=== PATIENT | female | born 1940 | race Caucasian/White ===

== ENCOUNTER 2017-03-31 13:38 | Inpatient (IN) ==
--- NOTE | 2017-03-31 14:32 | Emergency Department Note ---
Arrival - Arrival Chief Complaint: Neuro ED Nursing Triage Note: pt woke up about 0200 this am with lt side weakness. pt saw pcp at 0900. pt has no weakness now Mode of Arrival: Stretcher Limitations: No Limitations Source: Patient Time Seen by Provider: 03/31/17 14:28 - History of Present Illness HPI Narrative: This 76-year-old white female presents with a history of onset of right facial droop, ataxia, and bilateral motor aberrations shortly after awakening this morning. She was taken immediately to her primary care doctor who thought she was having a stroke, as by his evaluation she had a right facial droop and right -sided weakness. She was sent to where she was found to have what they perceived to be left sided weakness and resolution of the right facial droop. While at [place] the patient had ultimate rastafarian of motor activity symmetrically. From the course of workup at [place] her CT there revealed no acute infarct. The patient does have a history of a prior TIA 4 years ago. Notably in the last 24 hours she had felt profoundly weak all day yesterday but otherwise was without any complaint. In association with this episode she denies nausea, vomiting, chest pain, shortness of breath, headache, or diaphoresis. Currently she appears stable and in no acute distress. Onset (ago): hour(s) (Patient presents 8 hours post onset of symptoms) Allergies/Adverse Reactions: Allergies Allergy/AdvReac Type Severity Reaction Status Date / Time iron Allergy Unknown/Unable Verified 03/31/17 13:48 to obtain Home Medications: Home Medications Medication Instructions Recorded Confirmed Type Aspirin EC Tab 81 mg PO QOTHER DAY 03/31/17 03/31/17 History Atenolol 25 mg PO QPM 03/31/17 03/31/17 History Estradiol [Estradiol Tab] 1 mg PO MOFR 03/31/17 03/31/17 History Losartan/Hydrochlorothiazide 1 each PO QAM 03/31/17 03/31/17 History [Losartan-Hctz 50-12.5 mg Tab] [place]-3/Dha/Epa/Fish Oil [Fish Oil 1 each PO BID 03/31/17 03/31/17 History 1,000 mg Softgel] Review of System - Review of System 12 point system: reviewed and no additional remarkable complaints except as stated - Review of System Constitutional: Present: as per HPI Respiratory: Present: as per HPI Cardiovascular: Present: as per HPI Gastrointestinal: Present: as per HPI Neurological: Present: as per HPI Medical,Surgical,& Family Hx - Medical History Cardio: History of: Hypertension Neurology: History of: TIA - Social History Smoking Status: Never smoker Frequency of Alcohol Use: None Type of Drug Use: None Exam Physical Examination: GENERAL: Well developed, well nourished elderly white in no acute distress. HEENT: Normocephalic. No trauma. Moist mucous membranes. EOMI. PERRLA. ENT NML NECK: Supple. No adenopathy. CARDIAC: Regular. No murmurs. Heart rate 72 CHEST: Clear to auscultation. No respiratory distress. O2 sat 98% ABDOMEN: Soft. Nontender. Active bowel sounds. EXTREMITIES: No trauma. Normal ROM. No pedal edema. SKIN: No diaphoresis. No rash. NEURO: Alert. Oriented 3. Motor, sensory, vibratory intact. No focal deficits. Normal exam at this time. Vital Signs: Vital Signs Temperature 98.4 F 03/31/17 13:43 Pulse Rate 72 03/31/17 13:43 Respiratory Rate 18 03/31/17 13:43 Blood Pressure 191/84 03/31/17 13:43 O2 Sat by Pulse Oximetry 96 03/31/17 13:43 Course - Reevaluation(s) Reevaluation #1: Discussed with patient the need for admission for further evaluation and workup - Consultations Consultation #1: Discussed with hospitalist service who will admit for further evaluation treatment. Results - Labs Labs: Lab per Pat reveals negative cardiac's, sodium 142, potassium 4.0, BUN 18, creatinine 0.7, glucose 117, white blood cell count 7600, hematocrit 15,200 - Impressions EKG provided sinus rhythm with occasional PVC. Normal NE interval and QRS duration. Nonspecific ST changes. No acute injury pattern noted. - Diagnostic Findings Procedure: CT: image reviewed by me, report reviewed by me (Head her brother reveals no acute injury) Disposition Clinical Impression: TIA Case discussed with: patient Disposition: Still a Patient Condition: Guarded Time of Disposition: 14:44
[2017-03-31] MEDS ORDERED: LABETALOL 20 MG/4 ML SYRINGE IV PRN (16:41)
--- NOTE | 2017-03-31 16:58 | Hospitalist History & Physical ---
Assessment and Plan (1) TIA (transient ischemic attack) Status: Acute Assessment and plan: Patient has a history of TIA in the past. At the time of ED presentation here at [facility], the patient was free of any neurological deficit. We will conduct a full TIA workup; obtain echocardiogram, carotid Dopplers, lipid panel, thyroid panel, MRI and MRA, and consult neurology to evaluate. Current Visit: Yes Qualifiers: Transient cerebral ischemia type: unspecified Qualified Code(s): G45.9 - Transient cerebral ischemic attack, unspecified (2) HTN (hypertension) Status: Acute Assessment and plan: The patient's blood pressure is stable. We will monitor closely. Current Visit: Yes History of Present Illness Chief complaint: Left-sided weakness History of present illness: This is a very pleasant 76-year-old female that presented to the ED at [facility] this afternoon as a lateral transfer from [facility] for the evaluation of left-sided weakness. Patient has a medical history significant for hypertension and transient ischemic attack. Patient has surgical history significant for hysterectomy and tonsillectomy. The patient reported the onset of symptoms this morning. She reports that she was attempting to get up to walk to the bathroom and she felt "unsteady" and "no use of the right side" her became alarmed and he took her to her primary care physician this morning. She was evaluated by her primary care physician and at that time she was noted to have a right-sided facial droop and right-sided weakness. The patient was subsequently transferred to [facility] where she was evaluated. During the clinical encounter, the patient's motor function improved. CT scan was performed there which revealed no acute infarct. The patient reported that she had a headache and weakness that lasted the entire day on yesterday. The patient was subsequently transferred to [facility] for further evaluation. Upon review of the external facility record and after brief discussion with both Dr. León and Dr. Slaughter, the patient will be admitted to the hospitalist services for continuation of care. A neurology consult has been requested. Home medications have been reviewed and reconciled. CODE STATUS has been discussed; patient is a FULL CODE. Home Medications Medication Instructions Recorded Confirmed Type Aspirin EC Tab 81 mg PO QOTHER DAY 03/31/17 03/31/17 History Atenolol 25 mg PO QPM 03/31/17 03/31/17 History Estradiol [Estradiol Tab] 1 mg PO MOFR 03/31/17 03/31/17 History Losartan/Hydrochlorothiazide 1 each PO QAM 03/31/17 03/31/17 History [Losartan-Hctz 50-12.5 mg Tab] [place]-3/Dha/Epa/Fish Oil [Fish Oil 1 each PO BID 03/31/17 03/31/17 History 1,000 mg Softgel] Allergies Allergy/AdvReac Type Severity Reaction Status Date / Time iron Allergy Unknown/Unable Verified 03/31/17 13:48 to obtain Medical,Surgical,& Family Hx - Medical History Cardio: History of: Hypertension Neurology: History of: TIA - Social History Smoking Status: Never smoker Frequency of Alcohol Use: None Type of Drug Use: None 12 point system: reviewed and no additional remarkable complaints except as stated Exam - Constitutional Vitals: Period Temp Pulse Resp BP Sys/Chris Pulse Ox Last 24 Hr 98.4 F-98.4 F 72-72 18-18 191-191/84-84 96 General appearance: normal weight, no acute distress - Head Head exam: Present: normal inspection, normocephalic, atraumatic - Eye Eye exam: Present: EOMI. Absent: conjunctival injection Pupils: Present: ROSANNA, normal accommodation - ENT ENT exam: Present: normal exam, normal external ear exam, normal oropharynx - Neck Neck exam: Present: normal inspection. Absent: lymphadenopathy, meningismus, thyromegaly - Respiratory Respiratory exam: Present: clear to auscultation bilaterally. Absent: rales, rhonchi, stridor, wheezes - Cardiovascular Cardiovascular exam: Present: regular rate and rhythm. Absent: bradycardia, carotid bruit, diastolic murmur, JVD, rubs, systolic murmur - GI/Abdominal GI/Abdominal exam: Present: normal bowel sounds, soft - Extremities Exam Extremities exam: Present: normal inspection, normal capillary refill, full ROM , edema - Back Exam Back exam: Present: normal inspection - Neurological Exam Neurological exam: Present: alert, oriented X3, CN II-XII intact - Psychiatric Psychiatric exam: Present: normal affect, normal mood - Skin Skin exam: Present: normal color, warm, dry Quality Measures - Stroke Onset of Symptoms Date: 03/31/17
[2017-03-31] MEDS ORDERED: ASPIRIN CHEW 81 MG TABLET PO ONE (17:25)
--- NOTE | 2017-03-31 17:30 | Ultrasound Report ---
Bilateral carotid Doppler. Grayscale, color flow, spectral analysis performed and interpreted. Indication: TIA. There is mild to moderate mixed, predominantly calcified plaque seen within both carotid bulbs and proximal internal carotid arteries. The right internal carotid artery peak systolic velocity is 82 cm/s, with an IC/CC Jabari of 2.2. The left internal carotid artery peak systolic velocity is 90 forcing meters per second, with an IC/CC ratio of 2.3. There is antegrade flow within each vertebral artery. Impression: IC/CC ratios are approaching values consistent with 50% stenosis bilaterally. In addition, there is significant plaque seen within grayscale imaging. MRA of the carotid bifurcations may be helpful for further characterization. NASCET criteria utilized. PROCEDURE INTERPRETED AT [facility] DEPARTMENT OF RADIOLOGY Final Report Signed by: Dr. Anny Pucktet
[2017-03-31 19:55] LABS: Basophils # 0.1 10*3/uL (0.0-0.2); Basophils % 0.7 % (0.0-0.8); Eosinophils # 0.1 10*3/uL (0.0-0.87); Hematocrit 40.7 VOL% (35.7-47.0); Hemoglobin 14.2 GM/DL (12.0-16.0); Immature Granulocytes % 0.4 %; Immature Granulocytes Absolute 0.03 #; Lymphocytes # 2.2 10*3/uL (1.4-4.0); Lymphocytes % 30.1 % (21.3-54.2); Mean Corpuscular HGB Conc 34.9 GM/DL (32-36); Mean Corpuscular Hemoglobin 31 PG (27-34); Mean Platelet Volume 11.2 FL (9.6-12.0); Monocytes # 0.7 10*3/uL (0.11-0.8); Monocytes % 9.1 % (1.7-12.7); Neutrophils # 4.2 10*3/uL (1.4-7.4); Neutrophils % 58.7 % (38.7-73.9); Platelet Count 181 T/CUMM (130-400); Red Blood Count 4.52 MC/CUMM (3.8-5.5); Red Cell Distribution Width 12.8 % (9.3-17.3); White Blood Count 7.1 T/CUMM (4-12)
[2017-03-31 20:17] LABS: Calcium 9.1 MG/DL (8.5-10.1); Osmolality,Calculated 278.5 MOS/KG (273-304); Potassium 3.3 MMOL/L (3.5-5.1)
[2017-03-31 20:22] LABS: Cholesterol 243 MG/DL (50-200); HDL Cholesterol 52 MG/DL (40-60); Risk Ratio 4.67; Triglycerides 219 MG/DL (2-150); Troponin I Only < 0.015 NG/ML (0.00-0.045); VLDL CHOLESTEROL 43.8 MG/DL
[2017-04-01 05:57] LABS: Basophils # 0.1 10*3/uL (0.0-0.2); Basophils % 0.9 % (0.0-0.8); Eosinophils # 0.1 10*3/uL (0.0-0.87); Eosinophils % 1.6 % (0.00-10.9); Hematocrit 40.2 VOL% (35.7-47.0); Hemoglobin 14.4 GM/DL (12.0-16.0); Immature Granulocytes % 0.2 %; Immature Granulocytes Absolute 0.01 #; Lymphocytes # 1.7 10*3/uL (1.4-4.0); Lymphocytes % 30.5 % (21.3-54.2); Mean Corpuscular HGB Conc 35.8 GM/DL (32-36); Mean Corpuscular Hemoglobin 32 PG (27-34); Mean Corpuscular Volume 89.3 FL (87-102); Mean Platelet Volume 11.1 FL (9.6-12.0); Monocytes # 0.6 10*3/uL (0.11-0.8); Monocytes % 10.9 % (1.7-12.7); Neutrophils # 3.1 10*3/uL (1.4-7.4); Neutrophils % 55.9 % (38.7-73.9); Platelet Count 174 T/CUMM (130-400); Red Cell Distribution Width 12.6 % (9.3-17.3); White Blood Count 5.6 T/CUMM (4-12)
[2017-04-01 06:28] LABS: Calcium 9.4 MG/DL (8.5-10.1); Osmolality,Calculated 284.1 MOS/KG (273-304); Potassium 3.8 MMOL/L (3.5-5.1)
[2017-04-01] MEDS ORDERED: ASPIRIN EC 81 MG TABLET PO SCH (09:00)
[2017-04-01] MEDS ORDERED: LOSARTAN/HCTZ 50-12.5 MG TABLET PO SCH (09:00)
--- NOTE | 2017-04-01 11:17 | Magnetic Resonance Report ---
Exam: MR head/brain w and wo con Date: 04/01/2017 Comparison: None Indication: TIA Technical: 1.5 Jennifer magnet Axial T1 pre-and postcontrast, ADC, DWI, FLAIR, gradient echo and FSE T2 Sagittal T1 precontrast, FLAIR Coronal postcontrast T1 Contrast: 20 cc cc Dotarem Findings: Exam reveals abnormal signal with restricted diffusion imaging in the right frontal temporal parietal lobe these areas of punctate abnormality on the different restricted diffusion imaging DWI imaging of dark signal on ADC images. Single area of abnormality in present in the right centrum semiovale posteriorly as well. The brainstem exhibit normal signal characteristics. The cerebellum reveals mild atrophic changes. The cerebral hemispheres exhibit small vessel changes are present in the periventricular subcortical white matter regions as well as the findings on the ADC and restricted diffusion imaging above. No obvious contrast enhancement signal characteristics demonstrated. The corpus callosum is unremarkable. The seventh and eighth cranial nerves and cerebral pontine angles are intact. The pituitary gland, infundibulum and optic chiasm are intact. The paranasal sinuses exhibit minimal inflammatory changes within the ethmoid air cells. Remaining paranasal sinuses demonstrate normal signal characteristics. The mastoid sinuses are unremarkable. The globes and intra-and extraconal spaces are unremarkable. Impression: 1. Small area of infarction involving the right frontal temporal and parietal lobe involving the region of a portion of the right middle cerebral artery distribution. 2. Small vessel ischemic changes diffusely present. PROCEDURE INTERPRETED AT [facility] DEPARTMENT OF RADIOLOGY Final Report Signed by: Dr. Sumanth Ty
--- NOTE | 2017-04-01 11:23 | Magnetic Resonance Report ---
Exam: MR angio neck wo/w con Date: 04/01/2017 Indication: TIA Comparison: None Technical 3-D slab imaging with axial and coronal imaging performed with and without gadolinium enhancement with 20 cc of contrast Dotarem administered. 3-D maximal intensity reduction images are available for review. Findings: The brachiocephalic artery right subclavian the left common carotid artery left subclavian are patent. The vertebral arteries are patent bilaterally. The thoracic arch is intact. The right common carotid artery, internal and external carotid artery demonstrated. Examination reveals mild plaque within the takeoff of the right ICA with minimal post stenotic dilatation. The distal vessel measures approximately 4.1 mm. The proximal vessel measures approximately 3.1 cm. The left common carotid artery, internal and external carotid are demonstrated. There is an area of narrowing within the takeoff of the left ICA. Poststenotic dilatation is present. The distal vessel measures 3.4 mm. The proximal vessel measures approximately 3.5 mm. The area of stenosis appears to narrow to approximately 1.3 mm. Impression: 1. Atherosclerotic plaque within the proximal aspect of the internal carotid arteries bilaterally with stenosis measuring approximately 70% left. There appears to be approximately a 50% narrowing of the right internal carotid artery. CT angiography or formal arteriography may be beneficial. PROCEDURE INTERPRETED AT [facility] DEPARTMENT OF RADIOLOGY Final Report Signed by: Dr. Sumanth Ty
--- NOTE | 2017-04-01 11:37 | Hospitalist Progress Note ---
Assessment and Plan (1) TIA (transient ischemic attack) Status: Acute Assessment and plan: Symptoms persisted for less than 24 hours by description. MRI demonstrated ischemic lesion superimposed upon chronic small vessel disease. 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 She continued unsteady during the morning hours and presented to her primary care physician subsequent referral. The patient believes that the symptoms lasted for not less than 6 hours but have remitted at this time. She denies any other symptoms during this interval. She is chronically maintained on low-dose aspirin at home but does take estrogen replacement therapy as well. Evaluation thus far shows subcritical carotid disease with a negative CT scan of the head at the outside facility however with a MRI done earlier this morning showing a small area in the right frontal temporal parietal region with diffuse small vessel changes. The patient had resolved her symptoms completely. Vital signs are stable and she feels well this morning. She has been consulted to neurology evaluation is pending. Exam - Constitutional Vitals: Period Temp Pulse Resp BP Sys/Chris Pulse Ox Last 24 Hr 97.3 F-98.4 F 63-75 18-21 143-191/67-88 92-98 General appearance: normal weight - Respiratory Respiratory exam: Present: clear to auscultation bilaterally. Absent: rales, rhonchi, wheezes - Cardiovascular Cardiovascular exam: Present: regular rate and rhythm - GI/Abdominal GI/Abdominal exam: Present: normal bowel sounds. Absent: tenderness - Extremities Exam Extremities exam: Absent: edema - Neurological Exam Neurological exam: Present: alert, oriented X3. Absent: motor sensory deficit Results - Labs CBC & BMP: 04/01/17 05:46 04/01/17 05:45 Quality Measures - Stroke Onset of Symptoms Date: 03/31/17 Onset of Symptoms Time: 05:00 Symptom Onset Unknown: No
[2017-04-01] MEDS: LOSARTAN 50 MG TABLET PO SCH (12:37)
--- NOTE | 2017-04-01 15:15 | Neurology Consult Note ---
History of Present Illness History of present illness: Ms Chandler is a 76-year-old right-handed white lady with past medical history significant for hypertension and TIA presented to the ED at [facility] for the evaluation of left-sided weakness. She reports that she was attempting to get up to walk to the bathroom and she felt "unsteady" and poor balance. Her took her to her primary care physician yesterday morning. The patient was subsequently transferred to [facility] where she was evaluated. During the clinical encounter, the patient's motor function improved. CT scan was performed there which revealed no acute infarct. The patient reported that she had a headache and weakness that lasted the entire day on yesterday. The patient was subsequently transferred to [facility] for further evaluation. MRI of the brain revealed right MCA distribution tiny multiple infarcts suggestive of embolic event. Lipid profile are borderline abnormal. Carotid ultrasound reveals less than 50 % stenosis however MRA of the carotid artery revealed 70% stenosis of the right ICA which is asymptomatic. Home Medications Medication Instructions Recorded Confirmed Type Aspirin EC Tab 81 mg PO QOTHER DAY 03/31/17 03/31/17 History Atenolol 25 mg PO QPM 03/31/17 03/31/17 History Estradiol [Estradiol Tab] 1 mg PO MOFR 03/31/17 03/31/17 History Losartan/Hydrochlorothiazide 1 each PO QAM 03/31/17 03/31/17 History [Losartan-Hctz 50-12.5 mg Tab] [place]-3/Dha/Epa/Fish Oil [Fish Oil 1 each PO BID 03/31/17 03/31/17 History 1,000 mg Softgel] Allergies Allergy/AdvReac Type Severity Reaction Status Date / Time iron Allergy Unknown/Unable Verified 03/31/17 13:48 to obtain 12 point system: reviewed and no additional remarkable complaints except as stated Medical,Surgical,& Family Hx - Medical History Cardio: History of: Hypertension (current) Psychological: No history of: Anxiety Disorders, ADHD, Behavior Problems, Bipolar Disorder, Depression, Previous Suicide Attempt, Psychiatric/Substance Abuse Tx, Schizophrenia, Violent Behavior, Psychiatric Problems Neurology: History of: TIA (4 years ago and current) HEENT: No history of: Ear Problem, Eye Problem, Dental Problems, Glaucoma Comment Only: HEENT Problems (drooping left eyelid) Endocrine: History of: Endocrine Problems (nodule on thyroid many yeargs ago bx x2) No history of: Adrenal Disease, Diabetes Mellitus (IDDM), Diabetes Mellitus ( NIDDM), Thyroid Disorder, Endocrine Cancer Rheumatology: No history of;: Fibromyalgia, Gout, Psoriasis, Rheumatoid Arthritis, Sjogrens , Systemic Lupus Erythematosus, Rheumatological Problems Renal: No history of: Dialysis, Renal Failure, Renal Problems Genitourinary: No history of: Bladder Problem, Kidney Stones, Recurring Urinary Tract Infections, Genitourinary Cancer, Problems Musculoskeletal: No history of: Amputation, Back/Neck Problems, Degenerative Disk Disease, Herniated Disk, Osteoporosis Comment Only: Musculoskeletal Problems (regular arthritis) Hematology: No history of: Anemia, Blood Transfusion Reaction, Bleeding Problems, Clotting Problems, Sickle Cell Disease, Hematologic Cancer, Blood Disorders Reproductive: No history of: Abnormal Pap Smear, Breast Cancer, Endometriosis, Ectopic , Ovarian Cysts, Complication, Sexually Transmitted Disorders , Reproductive Cancer, Reproductive Problems Other: No history of: Anesthesia Reactions, Anaphylaxis, Cancer, Eczema, Malignant Hyperthermia, MRSA, Vancomycin-Resistant Enterococci, Skin Problems, Miscellaneous Medical Problems - Surgical History Thoracic Surgeries: Patient denies;: Kidney (Renal Surgery), Lithotripsy, Organ Transplant HEENT Surgeries: Surgical HX of: Thyroid Surgery (see above), Tonsilectomy & Adenoidectomy (at age 12) Patient denies: Eye Surgery Abdominal Surgeries: Patient denies: Abdominal Surgery, Appendectomy, Cholecystectomy, Colonoscopy , Gastric Bypass Surgery, EGD, Hernia Repair Reproductive Surgeries: Surgical HX of;: Hysterectomy (35 years ago) Patient denies;: Section, Cystoscopy, Tubal Ligation Orthopedic Surgeries: Patient denies;: Implanted Devices, Orthopedic Surgery, Spinal Surgery, Total Hip Replacement, Total Knee Replacement - Family History Family History: Denies;: Family Anesthesia Reaction, Family Cancer, Family Diabetes, Family Hematology, Family Hypertension, Family Psychiatric Problems, Family Stroke, Additional Family History Comment Only: Family Heart Disease (father heart attack at age 41) - Social History Smoking Status: Never smoker Frequency of Alcohol Use: None Type of Drug Use: None Exam - Constitutional Vitals: Period Temp Pulse Resp BP Sys/Chris Pulse Ox Last 24 Hr 97.3 F-98.2 F 61-75 18-21 143-191/67-88 92-98 Exam: GENERAL: Patient is in no acute distress. NECK: Neck is supple. There is no JVD. No carotid bruits present. No thyroid masses. CVS: First and second heart sounds are normal. There is no S3 present. Regular rate and rhythm. RESPIRATORY: Lungs are clear to auscultation without any rales or rhonchi. ABDOMEN: Soft and non-tender. Bowel sounds are present. There is no hepatosplenomegaly. EXT: There is no palpable edema. Peripheral pulses are present. Skin: No rashes Central Nervous system: General: Alert, awake and Oriented x 3 Speech: Fluent Comprehension: Intact and normal Facial expressions: Normal Cranial Nerves: CN1/Olfactory: Normal CN II/ Optic: Normal, Visual Francis unreliable CN III, and : ROSANNA & EOMI CN V: Normal & intact CN VII: face is symmetric CNVIII: Normal CN XI/X/XI/XII: Intact and Normal Motor: Bulk and Tone is normal. Strength in the right 5/5 Strength in the left 3-4/5 Sensory: Decreased for all the modalities of PP, LT and temp sense in the left Reflexes: 1+ and symmetrical Cerebellar function: Normal finger to nose and heel to jack testing. Toes: Equivocal Gait: Able to get up and walk with supervision Results - Labs CBC & BMP: 04/01/17 05:46 04/01/17 05:45 Assessment and Plan (1) Acute CVA (cerebrovascular accident) Status: Acute Assessment and plan: Stop aspirin Start Plavix 75 mg p.o. daily Schedule outpatient PT and OT Schedule echo Current Visit: Yes (2) Hyperlipidemia Status: Acute Assessment and plan: Add Crestor 10 mg. P.o. daily Current Visit: Yes (3) HTN (hypertension) Status: Acute Assessment and plan: Continue losartan and atenolol at the same dose Follow-up in 4 week Thank you for the consult Current Visit: Yes Specialty Discharge - Follow Up or Referrals Follow up with: Andrew Wolff MD [Physician] - 1 Month
--- NOTE | 2017-04-01 16:24 | ECHO Report ---
Kamini Chandler Exam Date: 04/01/2017 09:19 Referring Physician: Technologist: Steffi Cortes Age: 76 Ht (in): 67 Wt (lb): 142 Gender: F Exam Location: [facility] Echo Indications: weakness, TIA, HTN BP: 161 / 75 HR: 75 Rhythm: Sinus Technical Quality: Fair IMPRESSIONS 1. Left ventricle is normal size and systolic function ejection fraction 55%. There is mild concentric left ventricular hypertrophy with mild diastolic dysfunction. 2. Other cardiac chambers are normal size. B. Mild mitral valve sclerosis with trace regurgitation. 4. Mild aortic valve sclerosing but functionally normal. 5. There is no gross source for emboli appreciated on this study. MEASUREMENTS (Male / Female) Normal Values 2D ECHO LV Diastolic Diameter PLAX 3.6 cm 4.2 - 5.9 / 3.9 - 5.3 cm LV Systolic Diameter PLAX 2.4 cm LV Fractional Shortening PLAX 34.3 % IVS Diastolic Thickness 1.3 cm 0.6 - 1.0 / 0.6 - 0.9 cm LVPW Diastolic Thickness 1.3 cm 0.6 - 1.0 / 0.6 - 0.9 cm RV Internal Dim ED PLAX 2.7 cm Aortic Root Diameter 2.3 cm LA Systolic Diameter LX 3.4 cm 3.0 - 4.0 / 2.7 - 3.8 cm DOPPLER TR Peak Velocity 197.0 cm/s TR Peak Gradient 15.5 mmHg FINDINGS Left Ventricle Normal left ventricular cavity size. Mild concentric left ventricular hypertrophy with possibly mild diastolic dysfunction. Left ventricular ejection fraction is estimated at 55 %. Right Ventricle Normal right ventricular size. Right Atrium Normal right atrial size. Left Atrium Normal left atrial size. Mitral Valve Mild mitral valve sclerosis. Trace mitral valve regurgitation. Aortic Valve Mild aortic valve sclerosis without stenosis or regurgitation. Tricuspid Valve Morphologically normal tricuspid valve. Trace to mild tricuspid valve regurgitation. Tricuspid regurgitation velocities suggest a PAP of 26 mmHg. Pulmonic Valve Morphologically normal pulmonic valve. Pericardium No pericardial effusion. Aorta Normal size aortic root and proximal ascending aorta. Bryan Barrios MD (Electronically Signed) Final Date: 01 April 2017 16:23
[2017-04-01] MEDS ORDERED: ATENOLOL 25 MG TABLET PO SCH (19:00)
[2017-04-01] MEDS ORDERED: ROSUVASTATIN 10 MG TABLET PO SCH (21:00)
[2017-04-02] MEDS ORDERED: CLOPIDOGREL 75 MG TABLET PO SCH (09:00)
[2017-04-02] MEDS: LOSARTAN 50 MG TABLET PO SCH (09:14)
--- NOTE | 2017-04-02 09:23 | Discharge Summary ---
Hospital Course - Hospital Course Hospital Course: 76-year-old female chronic hypertension with presentation with gait instability. Patient is chronically maintained on low-dose aspirin and in the emergency department demonstrated a negative CT scan of the head. An MRI of the head did show however a small area of abnormality in the right frontal temporal parietal region with diffuse small vessel changes. This is not associated with any significant carotid disease echocardiographic abnormality or cardiac arrhythmias. She was seen in consultation by neurology who recommended conversion from aspirin to Plavix. Lipid-lowering treatment was recommended however the patient had tried all the agents previously and stated that she had severe muscle pain with each agent and never been able to complete a course of treatment. She is being discharged at this time she will have outpatient occupational and physical therapy with neurology follow-up in 1 month. Diagnosis - Discharge Diagnosis (1) TIA (transient ischemic attack) Status: Acute Specialty Discharge - Follow Up or Referrals Follow up with: Andrew Wolff MD [Physician] - 1 Month Discharge Plan - Discharge Data Disposition: Disch To Home/Self Care Condition at Discharge: Stable Discharge Diet: advance to your usual diet Activity: resume usual activities as tolerated - Discharge Medications New Clopidogrel [Plavix] 75 mg PO DAILY #30 tablet Continue Losartan/Hydrochlorothiazide [Losartan-Hctz 50-12.5 mg Tab] 1 each PO QAM Estradiol [Estradiol Tab] 1 mg PO MOFR [place]-3/Dha/Epa/Fish Oil [Fish Oil 1,000 mg Softgel] 1 each PO BID Atenolol 25 mg PO QPM Discontinued Aspirin EC Tab 81 mg PO QOTHER DAY - Follow Up or Referral Follow Up: Andrew Wolff MD [Physician] - 1 Month - Forms/Instructions Instructions: Ischemic Stroke (DC) Exam - Constitutional Vitals: Period Temp Pulse Resp BP Sys/Chris Pulse Ox Last 24 Hr 96.8 F-98.2 F 55-62 18-95 125-175/62-85 91-98 DS: Provider Date of admission: 03/31/17 16:40 Primary care physician: . No PCP Attending physician on admission: Rojelio Slaughter MD Consults: 03/31/17 16:41 Consult to Case Mgmt/Social Srvs [CONS] Routine Reason for Case Mgmt/Social Srvs: Discharge Planning Consult to Occupational Therapy [CONS] Routine Reason for Occupational Therapy: Evaluate and Treat Consult Comment: Stroke Consult to Physical Therapy [CONS] Routine Reason for Physical Therapy: Evaluate and Treat Consult Comment: stroke 03/31/17 18:33 Consult to Pastoral Services [CONS] Routine Comment: Pastoral Screen: Request Area Plant Manager Visit Pastoral Screen Source of Request: Patient 04/01/17 16:42 Consult to Physician [CONS] Routine Comment: Consulting Provider: Andrew Wolff Consulting Provider Notified: Yes When should Consulting Provider be notified: Now Consult to Specialist Group: Neurology Person Notified: TD Date Notified: 04/01/17 Time Notified: 08:47 Discharging clinician: Mahamed Glynn MD Expected date of discharge: 04/02/17
--- NOTE | 2017-04-02 09:48 | Physician Query Form ---
CLICK EDIT DOCUMENT TO SELECT QUERY ANSWER --> OK --> SIGN Salome Gonzalez RN, CCDS Certified Clinical Licensed Surveyor W) [phone] (f) [phone] [email or web address] PROVIDERS: Make your selection(s) from the choices in EACH section by typing an "x" and enter comments in the comment section. Please use your independent medical judgment in providing your response. This request does not imply that any particular answer is desired or expected. CLINICAL INDICATORS: (Providers should not edit this section) The medical record indicates that the patient was admitted with gait instability , "MRI of the head did show however a small area of abnormality in the right frontal temporal parietal region with diffuse small vessel changes", Neuro consultation " Acute CVA (cerebrovascular accident)" and per discharge summary "TIA (transient ischemic attack)". As the attending MD can you please clarify if the patient was treated for ? Based on the above, could you clarify the appropriate diagnosis, if significant , that supports the above abnormalities and additional evaluation, monitoring, and/or treatment rendered: ( x) TIA (transient ischemic attack) ( ) CVA ( ) Other, please specify: ( ) Clinically unable to determine COMMENTS: PLEASE ALSO DOCUMENT RESPONSE IN PROGRESS NOTES AND/OR DISCHARGE SUMMARY Use of terms such as suspected, likely, or probable (associated with a specific diagnosis that is being evaluated, monitored, or treated as if it exists) are acceptable and can be restated in the discharge summary if not ruled out. MTDD
[2017-04-07 10:16] VITALS: BP 139/85
== END 2017-04-02 11:30 | disposition home or self-care (01) | DRG 69 ==
LOC: N.ED 13:38 → N.EDINP 16:40 → SUATTDRO 16:40 → N.4E 17:51
PROVIDERS: ADMIT Internal Medicine; ATTEND Internal Medicine Cardiovascular Disease

== ENCOUNTER 2017-06-20 23:01 | Inpatient (IN) ==
--- NOTE | 2017-06-21 00:24 | Emergency Department Note ---
Arrival - Arrival Chief Complaint: Dizziness ED Nursing Triage Note: C/O Dizziness. Onset 1899 today. Pt states that she thought she could be having another stroke so she wanted to get checked out. Pt reports having CVA in March that left her with residual weakness to left side- she uses a cane to get around with. Mode of Arrival: Stretcher Limitations: No Limitations Source: Patient Time Seen by Provider: 06/20/17 23:28 - History of Present Illness HPI Narrative: The patient was transferred here from [facility] for possible CVA. She complains of dizziness since around 1899 tonight. States she feels off balance but also states that she felt like she was going to pass out at one point. She has some residual left-sided weakness after a CVA in March of this year but she reports no new focal weakness. No facial droop or slurred speech. No mental status changes. At [facility] she had a CT scan which showed "a new area of encephalomalacia change infarction in the right basal ganglia and subcortical margin of the frontal parietal lobe." Her lab work was essentially normal. She was noted to be hypertensive on arrival there with a blood pressure of 210/105. This improved to 195/84 by the time she left without any treatment. Date of Last Menstrual Period: Hysterectomy Allergies/Adverse Reactions: Allergies Allergy/AdvReac Type Severity Reaction Status Date / Time iron Allergy Unknown/Unable Verified 03/31/17 13:48 to obtain Home Medications: Home Medications Medication Instructions Recorded Confirmed Type Atenolol 25 mg PO QPM 03/31/17 06/20/17 History Estradiol [Estradiol Tab] 1 mg PO MOFR 03/31/17 06/20/17 History Losartan/Hydrochlorothiazide 1 each PO QAM 03/31/17 06/20/17 History [Losartan-Hctz 50-12.5 mg Tab] [place]-3/Dha/Epa/Fish Oil [Fish Oil 1 each PO BID 03/31/17 06/20/17 History 1,000 mg Softgel] Clopidogrel [Plavix] 75 mg PO DAILY #30 tablet 04/02/17 06/20/17 Rx Review of System - Review of System 12 point system: reviewed and no additional remarkable complaints except as stated - Review of System Constitutional: Absent: fever Eyes: Absent: vision change Head/Ears/Nose/Throat: Absent: nasal drainage, sore throat Respiratory: Absent: cough Cardiovascular: Absent: chest pain Gastrointestinal: Absent: nausea, vomiting Neurological: Present: weakness (Residual left-sided weakness from previous CVA , unchanged), other ("Dizziness"). Absent: headache, numbness, paresthesias, confusion Medical,Surgical,& Family Hx - Medical History Cardio: History of: Hypertension (current) Psychological: No history of: Anxiety Disorders, ADHD, Behavior Problems, Bipolar Disorder, Depression, Previous Suicide Attempt, Psychiatric/Substance Abuse Tx, Schizophrenia, Violent Behavior, Psychiatric Problems Neurology: History of: TIA (4 years ago and current) HEENT: No history of: Ear Problem, Eye Problem, Dental Problems, Glaucoma Comment Only: HEENT Problems (drooping left eyelid) Endocrine: History of: Endocrine Problems (nodule on thyroid many yeargs ago bx x2) No history of: Adrenal Disease, Diabetes Mellitus (IDDM), Diabetes Mellitus ( NIDDM), Thyroid Disorder, Endocrine Cancer Rheumatology: No history of;: Fibromyalgia, Gout, Psoriasis, Rheumatoid Arthritis, Sjogrens , Systemic Lupus Erythematosus, Rheumatological Problems Renal: No history of: Dialysis, Renal Failure, Renal Problems Genitourinary: No history of: Bladder Problem, Kidney Stones, Recurring Urinary Tract Infections, Genitourinary Cancer, Problems Musculoskeletal: No history of: Amputation, Back/Neck Problems, Degenerative Disk Disease, Herniated Disk, Osteoporosis Comment Only: Musculoskeletal Problems (regular arthritis) Hematology: No history of: Anemia, Blood Transfusion Reaction, Bleeding Problems, Clotting Problems, Sickle Cell Disease, Hematologic Cancer, Blood Disorders Reproductive: No history of: Abnormal Pap Smear, Breast Cancer, Endometriosis, Ectopic , Ovarian Cysts, Complication, Sexually Transmitted Disorders , Reproductive Cancer, Reproductive Problems Other: No history of: Anesthesia Reactions, Anaphylaxis, Cancer, Eczema, Malignant Hyperthermia, MRSA, Vancomycin-Resistant Enterococci, Skin Problems, Miscellaneous Medical Problems - Surgical History Thoracic Surgeries: Patient denies;: Kidney (Renal Surgery), Lithotripsy, Organ Transplant HEENT Surgeries: Surgical HX of: Thyroid Surgery (see above), Tonsilectomy & Adenoidectomy (at age 12) Patient denies: Eye Surgery Abdominal Surgeries: Patient denies: Abdominal Surgery, Appendectomy, Cholecystectomy, Colonoscopy , Gastric Bypass Surgery, EGD, Hernia Repair Reproductive Surgeries: Surgical HX of;: Hysterectomy (35 years ago) Patient denies;: Section, Cystoscopy, Tubal Ligation Orthopedic Surgeries: Patient denies;: Implanted Devices, Orthopedic Surgery, Spinal Surgery, Total Hip Replacement, Total Knee Replacement - Family History Family History: Denies;: Family Anesthesia Reaction, Family Cancer, Family Diabetes, Family Hypertension, Family Psychiatric Problems, Family Stroke Comment Only: Family Heart Disease (father heart attack at age 41) - Social History Smoking Status: Never smoker Frequency of Alcohol Use: None Type of Drug Use: None Exam Physical Examination: GENERAL: Alert. No acute distress. HEENT: Normocephalic and atraumatic. PERRLA. EOMI. There is no nasal drainage. No pharyngeal erythema or exudate. NECK: Normal inspection. Supple. No lymphadenopathy or meningismus. LUNGS: No respiratory distress. Clear to auscultation bilaterally, no wheezes, rales or rhonchi. HEART: Regular rate and rhythm. ABDOMEN: Soft, nontender and nondistended with normoactive bowel sounds. BACK: Normal inspection. SKIN: Color normal. Warm and dry. EXTREMITIES: Nontender. Normal range of motion. No pedal edema. NEUROLOGICAL/PSYCHIATRIC: Alert and oriented -3 with normal mood and affect. Cranial nerves normal. No sensory deficit. I can detect no weakness in her left upper or lower extremities. Vital Signs: Vital Signs Temperature 98.7 F 06/20/17 23:13 Pulse Rate 75 06/20/17 23:13 Respiratory Rate 16 06/20/17 23:13 Blood Pressure 191/60 06/20/17 23:13 O2 Sat by Pulse Oximetry 99 06/20/17 23:13 Course Course Narrative: Note: The multiple negatives in the past medical history were not marked by me. They are the result of the triage process, past medical records or other unknown causes. Due to time constraints, these were not all reviewed with the patient and the backslashes were not removed from the chart. They should be ignored. - Reevaluation(s) Reevaluation #1: I have discussed the patient with the hospitalist service who will see her and admit. Time: 00:38 Results - Labs Lab Results: I have reviewed the patients labs Labs: Labs were done at [facility]: Sodium 140 Potassium 4.1 Chloride 100 Carbon dioxide 28 BUN 16 Creatinine 0.8 Glucose 131 Troponin less than 0.03 White blood cell count 5.72 Hemoglobin 14.8 Hematocrit 42.2 Platelet 171 - Impressions CT of the head done at [facility] showed "a new area of encephalomalacia change infarction in the right basal ganglia and subcortical margin of the frontal parietal lobe." EKG showed a sinus rhythm with first-degree AV block at [address] and T-wave abnormality. Disposition Clinical Impression: Cerebrovascular accident, Hypertension Case discussed with: patient, patient's family Condition: Stable Time of Disposition: 00:43
[2017-06-21] MEDS ORDERED: ACETAMINOPHEN 325 MG TABLET PO PRN (04:13)
[2017-06-21] MEDS ORDERED: ONDANSETRON 4 MG/2 ML VIAL IV PRN (04:13)
--- NOTE | 2017-06-21 04:33 | Hospitalist History & Physical ---
Assessment and Plan (1) Dizziness Status: Acute Assessment and plan: Patient presented with dizziness started acutely. Lab work was unremarkable noted uncontrolled hypertension. CT scan finding possible related to recent stroke but will have neurology see her. Will continue aspirin and Plavix as recommended on previous admission I do not see aspirin as home medication but will provide double antiplatelet therapy and have follow-up with the neurology. Current Visit: Yes (2) Hypertension Status: Chronic Assessment and plan: Uncontrolled. Due to prolonged KS interval and a heart rate in 60s I will stop atenolol increase the dose of losartan and HCTZ. Current Visit: Yes (3) Cerebrovascular accident Status: Chronic Assessment and plan: Patient with the very mild if residual left-sided weakness. As mentioned we will continue antiplatelet therapy she has not been on any statin or lipid- lowering agent. I will order fasting lipid panel and will have hospitalist in the morning to follow lab Current Visit: Yes History of Present Illness Chief complaint: Dizziness History of present illness: Ms. Chandler is a 77 year old female with history of hypertension and CVA. She was admitted here in March 2017 with acute CVA with left-sided weakness. She had MRI that admission showed small area of infarction involving the right frontal temporal and parietal lobe involving the region of right middle cerebral artery distribution. She stayed in the hospital for 2 days and was discharged and underwent physical therapy which according to her was completed yesterday. She started having dizziness around 7:00 yesterday evening. She denies any headache. It is hard for her to describe the dizziness but she is feel unstable she did not feel any admitted jack movement but was dizzy and almost passed out without any seizure. She is still dizzy especially when she is tries to sit up in the bed. She has no chest pain fever nausea vomiting shortness of breath cough or any urinary symptoms. She initially presented at outside hospital where she had CT scan of the head which showed area of encephalomalacia changes in the right basal ganglia and subcortical margin of frontal lobe. Her lab work showed sodium 140 potassium 4.1 chloride 100 CO2 28 creatinine 0.8 BUN 16 glucose was 131 WBC 5.7 hemoglobin 14.8 hematocrit 42.2 platelet 171. Her blood pressure reported to be elevated at outside hospital and noted 195/84 pulse 65 EKG was normal sinus rhythm with the and prolonged KS interval hydrated 65. She was transferred from outside hospital to see neurology. Her blood pressure was also elevated here on arrival at 220/105. I was asked to admit the patient Home Medications Medication Instructions Recorded Confirmed Type Atenolol 25 mg PO QPM 03/31/17 06/20/17 History Estradiol [Estradiol Tab] 1 mg PO MOFR 03/31/17 06/20/17 History Losartan/Hydrochlorothiazide 1 each PO QAM 03/31/17 06/20/17 History [Losartan-Hctz 50-12.5 mg Tab] [place]-3/Dha/Epa/Fish Oil [Fish Oil 1 each PO BID 03/31/17 06/20/17 History 1,000 mg Softgel] Clopidogrel [Plavix] 75 mg PO DAILY #30 tablet 04/02/17 06/20/17 Rx Allergies Allergy/AdvReac Type Severity Reaction Status Date / Time iron Allergy Unknown/Unable Verified 03/31/17 13:48 to obtain Medical,Surgical,& Family Hx - Medical History Cardio: History of: Hypertension (current) Psychological: No history of: Anxiety Disorders, ADHD, Behavior Problems, Bipolar Disorder, Depression, Previous Suicide Attempt, Psychiatric/Substance Abuse Tx, Schizophrenia, Violent Behavior, Psychiatric Problems Neurology: History of: TIA (4 years ago and current) HEENT: No history of: Ear Problem, Eye Problem, Dental Problems, Glaucoma Comment Only: HEENT Problems (drooping left eyelid) Endocrine: History of: Endocrine Problems (nodule on thyroid many yeargs ago bx x2) No history of: Adrenal Disease, Diabetes Mellitus (IDDM), Diabetes Mellitus ( NIDDM), Thyroid Disorder, Endocrine Cancer Rheumatology: No history of;: Fibromyalgia, Gout, Psoriasis, Rheumatoid Arthritis, Sjogrens , Systemic Lupus Erythematosus, Rheumatological Problems Renal: No history of: Dialysis, Renal Failure, Renal Problems Genitourinary: No history of: Bladder Problem, Kidney Stones, Recurring Urinary Tract Infections, Genitourinary Cancer, Problems Musculoskeletal: No history of: Amputation, Back/Neck Problems, Degenerative Disk Disease, Herniated Disk, Osteoporosis Comment Only: Musculoskeletal Problems (regular arthritis) Hematology: No history of: Anemia, Blood Transfusion Reaction, Bleeding Problems, Clotting Problems, Sickle Cell Disease, Hematologic Cancer, Blood Disorders Reproductive: No history of: Abnormal Pap Smear, Breast Cancer, Endometriosis, Ectopic , Ovarian Cysts, Complication, Sexually Transmitted Disorders , Reproductive Cancer, Reproductive Problems Other: No history of: Anesthesia Reactions, Anaphylaxis, Cancer, Eczema, Malignant Hyperthermia, MRSA, Vancomycin-Resistant Enterococci, Skin Problems, Miscellaneous Medical Problems - Surgical History Thoracic Surgeries: Patient denies;: Kidney (Renal Surgery), Lithotripsy, Organ Transplant HEENT Surgeries: Surgical HX of: Thyroid Surgery (see above), Tonsilectomy & Adenoidectomy (at age 12) Patient denies: Eye Surgery Abdominal Surgeries: Patient denies: Abdominal Surgery, Appendectomy, Cholecystectomy, Colonoscopy , Gastric Bypass Surgery, EGD, Hernia Repair Reproductive Surgeries: Surgical HX of;: Hysterectomy (35 years ago) Patient denies;: Section, Cystoscopy, Tubal Ligation Orthopedic Surgeries: Patient denies;: Implanted Devices, Orthopedic Surgery, Spinal Surgery, Total Hip Replacement, Total Knee Replacement - Family History Family History: Denies;: Family Anesthesia Reaction, Family Cancer, Family Diabetes, Family Hypertension, Family Psychiatric Problems, Family Stroke Comment Only: Family Heart Disease (father heart attack at age 41) - Social History Smoking Status: Never smoker Frequency of Alcohol Use: None Type of Drug Use: None 12 point system: reviewed and no additional remarkable complaints except as stated (Mentioned in HPI) Exam - Constitutional Vitals: Period Temp Pulse Resp BP Sys/Chris Pulse Ox Last 24 Hr 98.7 F-98.7 F 75-75 16-16 191-191/60-60 99 General appearance: no acute distress, over weight - Head Head exam: Present: normal inspection, normocephalic, atraumatic - Eye Eye exam: Present: EOMI. Absent: conjunctival injection, nystagmus Pupils: Present: ROSANNA, normal accommodation - ENT ENT exam: Present: normal exam, normal oropharynx - Neck Neck exam: Present: other (Supple) - Respiratory Respiratory exam: Present: clear to auscultation bilaterally. Absent: rales, rhonchi - Cardiovascular Cardiovascular exam: Present: regular rate and rhythm. Absent: JVD, tachycardia - GI/Abdominal GI/Abdominal exam: Present: normal bowel sounds, soft. Absent: distended, tenderness - Extremities Exam Extremities exam: Present: normal inspection. Absent: edema - Neurological Exam Neurological exam: Present: alert, oriented X3, motor sensory deficit, other ( Patient has good strength bilaterally although noted may be touch weak on the left side but I do not know if it is due to recent stroke or just due to being nondominant site) - Psychiatric Psychiatric exam: Present: normal affect, normal mood Results - Labs Lab Results: I have reviewed the past 24 hour labs
[2017-06-21] MEDS: LOSARTAN/HCTZ 50-12.5 MG TABLET PO SCH (08:37)
[2017-06-21] MEDS: PANTOPRAZOLE 40 MG TABLET PO SCH (08:37)
[2017-06-21] MEDS: CLOPIDOGREL 75 MG TABLET PO SCH (08:37)
[2017-06-21] MEDS: ASPIRIN EC 81 MG TABLET PO SCH (08:38)
[2017-06-21] MEDS: OMEGA 3 ACID ETHYL ESTERS 1 GM CAPSULE PO SCH ×2 (08:38→20:56)
--- NOTE | 2017-06-21 08:57 | Event Note ---
Patient admitted for dizziness. She has been seen and examined. She states that she felt lightheaded upon standing. She denies any blurred vision/caro/n,v/ abdominal pain. She further denies any decreased oral intake/cough/dysuria/ diarrhea/fevers/chills. Currently, she has no dizziness. Vitals reviewed and spb is elevated. Cardiopulmonary noted for unlabored respirations, clear lungs without any wheezing and heart is regular. She has no LE swelling. 1. Dizziness, likely related to her uncontrolled hypertension. Her bp upon admission was 220/105. 2. HTN: better but still uncontrolled 3. h/o CVA: on plavix and asa; lipids pending Plan: await neurology input; appreciate help; continue to control blood pressure ; d/c dariel
[2017-06-21] MEDS ORDERED: ENOXAPARIN 40 MG/0.4 ML SYRINGE SUBCUT SCH (09:00)
[2017-06-21 09:32] LABS: Risk Ratio 2.97
[2017-06-21 09:33] LABS: Albumin 3.4 G/DL (3.4-5.0); Bilirubin,Direct 0.12 MG/DL (0.0-0.20); Bilirubin,Indirect 0.8 MG/DL (0.0-1.0); Bilirubin,Total 0.9 MG/DL (0.2-1.0); Total Protein 7.1 G/DL (6.4-8.3)
--- NOTE | 2017-06-21 13:31 | Neurology Consult Note ---
History of Present Illness History of present illness: 77 years old right-handed white lady with past medical history significant for recent CVA affected left body, hypertension admitted to the hospital with dizziness and lightheadedness. Patient reported symptoms started yesterday morning. She just completed physical therapy yesterday. Patient reported that she was just feeling lightheaded. No true vertigo reported. No double vision or speech difficulties. Denies any numbness tingling or weakness. She saw PCP last time a week ago and everything was fine back then. She is to be taking Plavix religiously. In the ER she was found to have significantly high blood pressure in the range of 200s systolic and in 100s diastolic. No vision difficulties or swallowing problems reported. Blood pressure is under better control and she is feeling much better. Home Medications Medication Instructions Recorded Confirmed Type Atenolol 25 mg PO QPM 03/31/17 06/21/17 History Estradiol [Estradiol Tab] 1 mg PO MOFR 03/31/17 06/20/17 History Losartan/Hydrochlorothiazide 1 each PO QAM 03/31/17 06/21/17 History [Losartan-Hctz 50-12.5 mg Tab] [place]-3/Dha/Epa/Fish Oil [Fish Oil 1 each PO BID 03/31/17 06/20/17 History 1,000 mg Softgel] Clopidogrel [Plavix] 75 mg PO DAILY #30 tablet 04/02/17 06/21/17 Rx Escitalopram Oxalate [Lexapro] 5 mg PO DAILY 06/21/17 06/21/17 History Rosuvastatin Calcium 5 mg PO DAILY 06/21/17 06/21/17 History Allergies Allergy/AdvReac Type Severity Reaction Status Date / Time iron Allergy Unknown/Unable Verified 03/31/17 13:48 to obtain 12 point system: reviewed and no additional remarkable complaints except as stated Medical,Surgical,& Family Hx - Medical History Cardio: History of: Hypertension (current) Psychological: No history of: Anxiety Disorders, ADHD, Behavior Problems, Bipolar Disorder, Depression, Previous Suicide Attempt, Psychiatric/Substance Abuse Tx, Schizophrenia, Violent Behavior, Psychiatric Problems Neurology: History of: Cerebrovascular Accident (2017), TIA (4 years ago and current) HEENT: No history of: Ear Problem, Eye Problem, Dental Problems, Glaucoma Comment Only: HEENT Problems (drooping left eyelid) Endocrine: History of: Endocrine Problems (nodule on thyroid many yeargs ago bx x2) No history of: Adrenal Disease, Diabetes Mellitus (IDDM), Diabetes Mellitus ( NIDDM), Thyroid Disorder, Endocrine Cancer Rheumatology: No history of;: Fibromyalgia, Gout, Psoriasis, Rheumatoid Arthritis, Sjogrens , Systemic Lupus Erythematosus, Rheumatological Problems Renal: No history of: Dialysis, Renal Failure, Renal Problems Genitourinary: No history of: Bladder Problem, Kidney Stones, Recurring Urinary Tract Infections, Genitourinary Cancer, Problems Musculoskeletal: No history of: Amputation, Back/Neck Problems, Degenerative Disk Disease, Herniated Disk, Osteoporosis Comment Only: Musculoskeletal Problems (regular arthritis) Hematology: No history of: Anemia, Blood Transfusion Reaction, Bleeding Problems, Clotting Problems, Sickle Cell Disease, Hematologic Cancer, Blood Disorders Reproductive: No history of: Abnormal Pap Smear, Breast Cancer, Endometriosis, Ectopic , Ovarian Cysts, Complication, Sexually Transmitted Disorders , Reproductive Cancer, Reproductive Problems Other: No history of: Anesthesia Reactions, Anaphylaxis, Cancer, Eczema, Malignant Hyperthermia, MRSA, Vancomycin-Resistant Enterococci, Skin Problems, Miscellaneous Medical Problems - Surgical History Thoracic Surgeries: Patient denies;: Kidney (Renal Surgery), Lithotripsy, Organ Transplant HEENT Surgeries: Surgical HX of: Thyroid Surgery (see above), Tonsilectomy & Adenoidectomy (at age 12) Patient denies: Eye Surgery Abdominal Surgeries: Patient denies: Abdominal Surgery, Appendectomy, Cholecystectomy, Colonoscopy , Gastric Bypass Surgery, EGD, Hernia Repair Reproductive Surgeries: Surgical HX of;: Hysterectomy (35 years ago) Patient denies;: Section, Cystoscopy, Tubal Ligation Orthopedic Surgeries: Patient denies;: Implanted Devices, Orthopedic Surgery, Spinal Surgery, Total Hip Replacement, Total Knee Replacement - Family History Family History: Denies;: Family Anesthesia Reaction, Family Cancer, Family Diabetes, Family Hypertension, Family Psychiatric Problems, Family Stroke Comment Only: Family Heart Disease (father heart attack at age 41) - Social History Smoking Status: Never smoker Frequency of Alcohol Use: None Type of Drug Use: None Exam - Constitutional Vitals: Period Temp Pulse Resp BP Sys/Chris Pulse Ox Last 24 Hr 98.5 F-98.7 F 55-75 16-18 141-191/60-73 92-99 Exam: GENERAL: Patient is in no acute distress. NECK: Neck is supple. There is no JVD. No carotid bruits present. No thyroid masses. CVS: First and second heart sounds are normal. There is no S3 present. Regular rate and rhythm. RESPIRATORY: Lungs are clear to auscultation without any rales or rhonchi. ABDOMEN: Soft and non-tender. Bowel sounds are present. There is no hepatosplenomegaly. EXT: There is no palpable edema. Peripheral pulses are present. Skin: No rashes Central Nervous system: General: Alert, awake and Oriented x 3 Speech: Fluent Comprehension: Intact and normal Facial expressions: Normal Cranial Nerves: CN1/Olfactory: Normal CN II/ Optic: Normal, Visual Francis unreliable CN III, and : ROSANNA & EOMI CN V: Normal & intact CN VII: face is symmetric CNVIII: Normal CN XI/X/XI/XII: Intact and Normal Motor: Bulk and Tone is normal. Strength in the right 4-5/5 Strength in the left 4-5/5 Sensory: Grossly intact for all the modalities of PP, LT and temp sense Reflexes: 1+ and symmetrical Cerebellar function: Normal finger to nose and heel to jack testing. Toes: Equivocal Gait: Able to get up and walk with help of a cane. Assessment and Plan (1) Cerebrovascular accident Status: Chronic Assessment and plan: No evidence of new stroke seen Recommend to continue Plavix only Stop aspirin Current Visit: Yes (2) Hypertension Status: Chronic Assessment and plan: Continue current medications. Check vitals per routine Current Visit: Yes (3) Dizziness Status: Acute Assessment and plan: This is likely due to hypertension. No clinical evidence of a new stroke. Hopefully home in the morning Current Visit: Yes
[2017-06-22 06:45] LABS: Basophils % 0.6 % (0.0-0.8); Eosinophils # 0.1 10*3/uL (0.0-0.87); Eosinophils % 1.7 % (0.00-10.9); Hematocrit 43.5 VOL% (35.7-47.0); Immature Granulocytes % 0.4 %; Immature Granulocytes Absolute 0.02 #; Lymphocytes # 1.6 10*3/uL (1.4-4.0); Lymphocytes % 29.8 % (21.3-54.2); Mean Corpuscular HGB Conc 34.5 GM/DL (32-36); Mean Corpuscular Hemoglobin 31 PG (27-34); Mean Corpuscular Volume 89.3 FL (87-102); Mean Platelet Volume 11.1 FL (9.6-12.0); Monocytes # 0.7 10*3/uL (0.11-0.8); Monocytes % 12.8 % (1.7-12.7); Neutrophils # 2.9 10*3/uL (1.4-7.4); Neutrophils % 54.7 % (38.7-73.9); Platelet Count 189 T/CUMM (130-400); Red Blood Count 4.87 MC/CUMM (3.8-5.5); Red Cell Distribution Width 12.3 % (9.3-17.3); White Blood Count 5.3 T/CUMM (4-12)
[2017-06-22 07:20] LABS: Albumin 3.4 G/DL (3.4-5.0); Bilirubin,Direct 0.19 MG/DL (0.0-0.20); Bilirubin,Indirect 0.5 MG/DL (0.0-1.0); Bilirubin,Total 0.7 MG/DL (0.2-1.0); Risk Ratio 3.09; VLDL CHOLESTEROL 30.4 MG/DL
[2017-06-22 07:25] LABS: Albumin 3.4 G/DL (3.4-5.0); Bilirubin,Total 1.2 MG/DL (0.2-1.0); Calcium 9.8 MG/DL (8.5-10.1); Magnesium 2.3 MG/DL (1.8-2.4); Osmolality,Calculated 281.3 MOS/KG (273-304)
[2017-06-22] MEDS: OMEGA 3 ACID ETHYL ESTERS 1 GM CAPSULE PO SCH (08:08)
[2017-06-22] MEDS: CLOPIDOGREL 75 MG TABLET PO SCH (08:08)
[2017-06-22] MEDS: LOSARTAN/HCTZ 50-12.5 MG TABLET PO SCH (08:08)
[2017-06-22] MEDS: PANTOPRAZOLE 40 MG TABLET PO SCH (08:08)
[2017-06-22] MEDS: ASPIRIN EC 81 MG TABLET PO SCH (08:08)
[2017-06-22 09:21] VITALS: BP 158/81
--- NOTE | 2017-06-22 10:59 | Discharge Summary ---
<Tanner Barbour - Last Filed: 06/22/17 10:55> Hospital Course - Hospital Course Hospital Course: Ms. Chandler is a 77 year old female with a past medical history significant for uncontrolled hypertension and CVA presented to the ED with complaints of dizziness. She was admitted to the hospital medicine service on 06/11/2017 through the ED for further evaluation and treatment. With supportive care, her symptoms resolved. Given her history of CVA, neurology was consulted to rule out repeat CVA. There was no evidence of an acute CVA per imaging. Neurology recommended continuing Plavix only and DC'ing the ASA. The remainder of her hospital course was relatively uncomplicated, highlighted by management of her HTN. Her dizziness is believed to be secondary to the uncontrolled HTN. At this time, she has reached maximum benefit from hospitalization and is stable for discharge home. She will be discharged on the medications as outlined in this summary. She should follow up with her PCP in 1-2 weeks. Specialty Discharge - Follow Up or Referrals Discharge Plan - Discharge Data Disposition: Disch To Home/Self Care Condition at Discharge: Stable Discharge Diet: heart healthy Activity: resume usual activities as tolerated Weight Bearing at Discharge: weight bear as tolerated Driving: not until seen by doctor Contact your physician if you experience:: Difficulty voiding, Redness or swelling, Shortness of breath, pain uncontrolled by pain medications - Discharge Medications New Losartan/Hctz 50-12.5 [Hyzaar 50-12.5] 2 tablet PO DAILY #30 tablet Continue Losartan/Hydrochlorothiazide [Losartan-Hctz 50-12.5 mg Tab] 1 each PO QAM [place]-3/Dha/Epa/Fish Oil [Fish Oil 1,000 mg Softgel] 1 each PO BID Atenolol 25 mg PO QPM Clopidogrel [Plavix] 75 mg PO DAILY #30 tablet Rosuvastatin Calcium 5 mg PO DAILY Escitalopram Oxalate [Lexapro] 5 mg PO DAILY Discontinued Estradiol [Estradiol Tab] 1 mg PO MOFR - Follow Up or Referral - Forms/Instructions Instructions: Dizziness (GEN), Lightheadedness, Credentialing Analyst (GEN) Exam - Constitutional Vitals: Period Temp Pulse Resp BP Sys/Chris Pulse Ox Last 24 Hr 97.3 F-98.7 F 55-76 16-20 125-158/67-81 91-98 General appearance: normal weight - Head Head exam: Present: normocephalic, atraumatic - Eye Eye exam: Present: EOMI Pupils: Present: ROSANNA - ENT ENT exam: Present: normal oropharynx - Neck Neck exam: Present: normal inspection - Respiratory Respiratory exam: Present: clear to auscultation bilaterally - Cardiovascular Cardiovascular exam: Present: regular rate and rhythm - GI/Abdominal GI/Abdominal exam: Present: normal bowel sounds, soft - Extremities Exam Extremities exam: Present: full ROM - Neurological Exam Neurological exam: Present: alert, oriented X3, CN II-XII intact - Psychiatric Psychiatric exam: Present: normal affect, normal mood - Skin Skin exam: Present: normal color, warm, dry Discharge Results Labs on day of discharge: Labs from last 24 hours 06/22/17 06/22/17 06/22/17 06:11 06:11 06:11 WBC 5.3 RBC 4.87 Hgb 15.0 Hct 43.5 MCV 89.3 MCH 31 MCHC 34.5 RDW 12.3 Plt Count 189 MPV 11.1 Neut % (Auto) 54.7 Lymph % (Auto) 29.8 [place] % (Auto) 12.8 H Eos % (Auto) 1.7 Baso % (Auto) 0.6 Neut # (Auto) 2.9 Lymph # (Auto) 1.6 [place] # (Auto) 0.7 Eos # (Auto) 0.1 Baso # (Auto) 0.0 Immature Gran % 0.4 Nucleated RBC % 0.0 Immature Gran # 0.02 Nucleated RBCs # 0.00 Immature Plt Fraction 0.0 Sodium 141 Potassium 4.0 Chloride 105 Carbon Dioxide 31 Anion Gap 9.0 BUN 19 H Creatinine 0.90 GFR Calculation 61 BUN/Creatinine Ratio 21.00 H Glucose 83 Calculated Osmolality 281.3 Calcium 9.8 Magnesium 2.3 Total Bilirubin 1.20 H 0.70 Direct Bilirubin 0.190 Indirect Bilirubin 0.5 AST 23 25 ALT 31 32 Alkaline Phosphatase 63 62 Total Protein 7.0 7.0 Albumin 3.4 3.4 Globulin 3.6 H Albumin/Globulin Ratio 0.9 L Triglycerides 152 H Cholesterol 164 LDL Cholesterol 84.0 VLDL Cholesterol 30.4 HDL Cholesterol 53 Heart Disease Risk Ratio 3.09 DS: Provider Date of admission: 06/21/17 04:14 Primary care physician: Joselito Steven MD Attending physician on admission: Rojelio Slaughter MD Consults: 06/21/17 04:13 Consult to Physician [CONS] Routine Comment: Dizziness with recent CVA Consulting Provider: Andrew Wolff Consulting Provider Notified: No When should Consulting Provider be notified: In am Person Notified: Dr Wolff Date Notified: 06/21/17 Time Notified: 09:58 Discharging clinician: Tanner Barbour MD <Dennis Wilkins - Last Filed: 06/22/17 11:08> Hospital Course - Time spent with patient Time with patient DS: Greater than 30 minutes DS: Provider Expected date of discharge: 06/22/17
[2017-06-23] MEDS ORDERED: ESTRADIOL 1 MG TABLET PO SCH (09:00)
== END 2017-06-22 11:56 | disposition home or self-care (01) | DRG 305 ==
LOC: EDBD → EDUNIT# → N.ED 23:01 → SUATTDRO 06-21 04:14 → N.5E 06-21 04:14
PROVIDERS: ADMIT Internal Medicine; ATTEND Internal Medicine Infectious Disease